=== PATIENT | female | born 1960 | race Caucasian/White ===

== ENCOUNTER 2016-03-16 07:18 | Day surgery (SDC) | payer MEDICAID ==
[2015-11-08 18:19] VITALS: BMI 26.2
[2016-03-16] MEDS ORDERED: CEFAZOLIN 1 GM VIAL ONE ×2 (07:33→08:09)
[2016-03-16] MEDS ORDERED: ALBUTEROL 6.7 GM MDI INH PRN (07:34)
[2016-03-16] MEDS ORDERED: LOMOTIL 2.5 MG PO PRN (07:34)
[2016-03-16] MEDS ORDERED: Albuterol/Ipratropium Neb 3 ML NEB NEB PRN (07:34)
[2016-03-16] MEDS ORDERED: DIPHENHYDRAMINE 25 MG CAP PO PRN (07:37)
[2016-03-16] MEDS ORDERED: MORPHINE 2 MG/ML INJECTION IV PRN (07:37)
[2016-03-16] MEDS ORDERED: PROMETHAZINE 25 MG/ML VIAL IV PRN (07:37)
[2016-03-16] MEDS ORDERED: ONDANSETRON HCL 4 MG/2 ML VIAL IV PRN ×2 (07:37→07:43)
[2016-03-16] MEDS ORDERED: DIPHENHYDRAMINE 50 MG/ML VIAL IV PRN (07:37)
[2016-03-16] MEDS ORDERED: MAGNESIUM HYDROXIDE 30 ML BOTTLE PO PRN ×2 (07:37)
[2016-03-16] MEDS ORDERED: ACETAMINOPHEN 325 MG/TAB TABLET PO PRN (07:37)
[2016-03-16] MEDS ORDERED: Aluminum;Magnesium;Simethicone 30 ML UDC PO PRN ×2 (07:37)
[2016-03-16] MEDS ORDERED: MEPERIDINE 25 MG/ML TUBEX IV PRN (07:43)
[2016-03-16] MEDS ORDERED: HYDROmorphone 1 MG INJECTION IV PRN ×2 (07:43)
[2016-03-16] MEDS ORDERED: LABETALOL 20 MG/4 ML SYRINGE IV PRN (07:43)
[2016-03-16] MEDS ORDERED: hydrALAZINE 20 MG/ML VIAL IV PRN (07:43)
[2016-03-16] MEDS ORDERED: FENTANYL 100 MCG/2 ML VIAL IV PRN (07:43)
[2016-03-16] MEDS ORDERED: ONDANSETRON HCL 4 MG ODT TAB PO PRN (07:43)
--- NOTE | 2016-03-16 07:51 | HIM.ANES ---
Anesthesia Evaluation & Plan Diagnoses: DISPLACED BIMALLEOLAR FRACTURE OF LEFT LOWER LEG, INIT (03/16/16) INFECTION FOLLOWING A PROCEDURE, INITIAL ENCOUNTER (03/16/16) - Focused Review of Systems Cardiac History: Yes: Hx Hypertension, Hx Cardiac Disorders, Hx Abnormal Cholesterol/Hyperlipidemia HEENT: Yes: Hx Vision Problem (DOES NOT WEAR GLASSES), Other HEENT Problems Hx Other HEENT Problems: ALLERGIC RHINNITIS, SINNUSITIS, VERTIGO Respiratory: Yes: Hx Asthma, Hx Emphysema, Hx Chronic Obstructive Pulmonary Disease (COPD) (CHRONIC BRONCHITIS), Hx Snoring, Hx Recent Cold/Flu (CURRENT COUGH AND CONGESTION 03/15/2016), Other Hx Respiratory (cough) Gastrointestinal: Yes: Hx Gastroesophageal Reflux Disease, Hx Gastrointestinal Disorders, Hx Colitis (CROHN'S), Hx Colonoscopy, Hx Endoscopy Neurological/Musculoskeletal: Yes: Hx Back Pain (BULGING DISK IN NECK) No: Hx Neurological Disorders Other Neurological Problems: VERTIGO Psychological: Yes Hx Depression, Yes Hx Mental/Emotional Disorders Endocrine: Yes: Hx Hypothyroidism (11/13/15 TSH 7.910 PCP AWARE) Blood/Autoimmune: Yes: Hx Anemia (AGE 16-RESOLVED) No: Hx AIDS, Hx Hepatitis (type) Smoking Status: Heavy tobacco smoker (5 or more cigarettes/day or daily pipe/ cigar) Past Social History: Denies: Substance Use Disorder Hx Chest Xray (date): Yes (11/18/2015 NO ACTIVE CARDIOPULMONARY DISEASE) Surgical History: Yes: Cholecystectomy (), Bladder Tact (BLADDER TACT 2010 ), Other (Tubal lig.) No: Hip, Knee Other Surgical History: TOTAL HYSTERECTOMY 2010 - Focused Physical Exam Mallampati: Class II Thyromental Distance: Greater than 3 Neck: Full Range of Motion Dental: Loose/Decaying Teeth Cardiovascular/Chest: Normal Respiratory: Lungs clear Any problems with anesthesia, including nausea and vomiting?: No Any relatives with a history of Malignant Hyperthermia?: No Does the patient have a history of Motion Sickness-: No Other: Problem List Problem Status Onset Acute cystitis without hematuria Acute Alcohol use Acute Diarrhea Acute Hyponatremia Acute Hypothyroid Acute Respiratory tract infection Acute UTI (urinary tract infection) Acute Wheezing Acute Tobacco abuse Chronic Allergies Allergy/AdvReac Type Severity Reaction Status Date / Time No Known Allergies Allergy Verified 03/16/16 07:38 Home Medications Medication Instructions Recorded Last Taken Type Albuterol Sulfate [Proventil Hfa] 1 - 2 puff INH Q4H PRN 12/25/12 1 Week Ago History Diphenoxylate HCl/Atropine 1 tab PO BID PRN 12/25/12 11/17/15 08:00 History [Lomotil Tablet (2.5 mg/0.025 mg)] Omeprazole 40 mg PO DAILY 12/25/12 11/18/15 07:30 History Atorvastatin Calcium [Lipitor] 10 mg PO DAILY 03/01/15 11/18/15 08:00 History Metoprolol Succinate (XL) [Toprol 12.5 mg PO DAILY PRN 03/01/15 11/17/15 08:00 History Xl] Montelukast Sodium [Singulair] 10 mg PO DAILY 03/01/15 11/18/15 07:30 History Ipratropium/Albuterol Sulfate 3 ml INH Q6H PRN 11/08/15 11/18/15 08:00 History [Duoneb 0.5 mg-3 mg/3 ml Soln] Lisinopril 20 mg PO DAILY 11/08/15 11/18/15 07:30 History Budesonide/Formoterol Fumarate 2 puff INH BID 11/17/15 11/18/15 07:15 History [Symbicort 160-4.5 Mcg Inhaler] Fluticasone Propionate [Flonase 1 - 2 spray AKI DAILY 11/17/15 11/18/15 08:00 History Nasal [place]] Loperamide HCl [Imodium] 2 mg PO DAILY PRN 11/17/15 11/18/15 08:00 History Prednisone [Deltasone] 40 mg PO .TAPERED DOSE 11/17/15 11/17/15 15:00 History Hydrocodone Bit/Acetaminophen 1 - 2 tab PO Q4-6H PRN 11/18/15 Unknown History [Hydrocodon-Acetaminophn 10-325] Calcium Carb & Cit/Vitamin D3 2 tab PO DAILY 03/15/16 Unknown History [Calcium + D3 ER Tab (600mg/500IU)] Guaifenesin-Dextromethorphan 1 each PO BID 03/15/16 Unknown History [Mucinex Dm] Height and Weight Patient's height 5 ft 2 in Patient's weight 64.864 kg BMI 26.2 - Anesthetic Plan Anesthesia Type: MAC ASA Class: 3 -: I have examined this patient and reviewed the medical record. The patient has been assessed prior to anesthesia. Risks and benefits of anesthesia and anesthetic technique options have been discussed and all questions answered. The patient accepts the risk and desires me to proceed with the planned anesthetic.
[2016-03-16] MEDS ORDERED: NALOXONE 0.4 MG/ML AMPULE IV SCH ×2 (08:00)
--- NOTE | 2016-03-16 08:59 | HIMOPRPT ---
DATE OF PROCEDURE: 03/16/16 PREOPERATIVE DIAGNOSES: Left lateral ankle wound dehiscence status post open reduction internal fixation of bimalleolar ankle fracture with retained deep implants POSTOPERATIVE DIAGNOSES: Same PROCEDURE: 1-left ankle deep implant removal 2-debridement of left lateral ankle wound dehiscence 3-placement of wound VAC FINDINGS: No evidence of osteomyelitis. No evidence of active infection or cellulitis. Fracture stability obtained although anterior fracture still visible radiographically. SPECIMENS REMOVED: None. ESTIMATED BLOOD LOSS: 10 cc ANESTHESIA: General COMPLICATIONS: None. TOURNIQUET TIME: None IMPLANTS: None SURGEON: Toribio Ahumada MD. ORIENTAL RUG STRETCHER: PA. [place] . SIGNIFICANT HISTORY, INDICATIONS, AND CONSENT: Nadya is a 55-year-old heavy smoker with a history of Crohn's disease in intermittent prednisone use who is now approximately 4 months status post open reduction internal fixation of left bimalleolar ankle fracture. Patient went on to do relatively well however developed wound dehiscence which expanded even with the assistance of regular wound care. Patient was unable to discontinue smoking and occasionally was weight-bearing with ambulation. Recently her incision site was found to have dehisced to the point were exposed implants were identified and it was decided patient would benefit from surgical intervention including implant removal with formal wound debridement and placement of wound VAC to encourage wound healing and prevent infection. Consent was obtained. OPERATION IN DETAIL: Nadya was taken to the operating room and placed in the supine position on the operating table after H&P was reviewed and left ankle was signed. Patient received prophylactic antibiotics and the left lower extremity was sterilely prepped and draped in the usual orthopedic fashion. Consensus was reached amongst participants in the OR suite. Next the wound was slightly widened proximally and distally with a sharp knife in order to visualize the entirety of the fibular plate. This was removed in normal fashion using a screwdriver under fluoroscopic guidance. The anterior to posterior lag screw was also removed. Next radiographic confirmation of implants being removed was performed and fracture stability was checked. The fracture was found to be stable with external rotation. However, fracture line was still visible anteriorly. Next using curettage we removed all nonviable tissue. A scalp was used to excise sharply nonviable skin and deep soft tissue. Curette was used to curettage our screw holes. [place] was also used to remove nonviable and fibrin as tissue. Then used 3 L of sterile saline to thoroughly irrigate the wound. Once we had a nice bleeding bed of bone and soft tissue as we placed white non adherent sponge over the bone with black sponge superficial to this approximately 1 cm larger than our wound site. The wound measured approximately 7-1/2 cm in length x 2-3/4 cm in width. After a seal was confirmed our patient was aroused by anesthesia and taken to the post anesthesia care unit in stable condition. PLAN: Patient will be observed for 23 hour stay. Touchdown weight-bearing left lower extremity. Anticipate discharge home tomorrow with outpatient wound care for every other day wound VAC changes.
[2016-03-16] MEDS ORDERED: FLUTICASONE PROPIONATE 16 GM BOT NAS SCH (09:00)
[2016-03-16] MEDS ORDERED: Non-Formulary Medication ITEM (Budesonide/Formoterol Fumarate [Symbicort 160-4.5 Mcg Inh INH SCH (09:00)
[2016-03-16] MEDS ORDERED: FENTANYL 100 MCG/2 ML VIAL ONE (09:18)
[2016-03-16] MEDS: FENTANYL 100 MCG/2 ML VIAL IV PRN ×2 (09:21→09:33)
[2016-03-16] MEDS ORDERED: MIDAZOLAM 2 MG/2 ML VIAL IV ONE (10:00)
[2016-03-16] MEDS ORDERED: HYDROmorphone 2 MG/ML VIAL IM ONE (10:00)
[2016-03-16] MEDS ORDERED: ONDANSETRON HCL 4 MG/2 ML VIAL IV ONE (10:00)
[2016-03-16] MEDS ORDERED: LIDOCAINE 100 MG PFS IV ONE (10:00)
[2016-03-16] MEDS ORDERED: PROPOFOL 200 MG/20 ML VIAL IV ONE (10:00)
[2016-03-16] MEDS ORDERED: FENTANYL 100 MCG/2 ML VIAL IV ONE (10:00)
[2016-03-16] MEDS: LR 1,000 ML IV SCH (10:19)
[2016-03-16] MEDS: FLUTICASONE PROPIONATE 16 GM BOT NAS SCH (10:20)
[2016-03-16] MEDS: ATORVASTATIN 10 MG TAB PO SCH (10:20)
[2016-03-16] MEDS: LISINOPRIL 20 MG TAB PO SCH (10:21)
[2016-03-16] MEDS: MONTELUKAST SODIUM 10 MG TAB PO SCH (10:21)
[2016-03-16] MEDS ORDERED: Vaccine Screening Complete SCH (11:00)
[2016-03-16] MEDS: BUDESONIDE 0.5 MG NEB NEB SCH ×2 (11:35→20:21)
[2016-03-16] MEDS ORDERED: CHAPSTICK LIP BALM ONE (11:42)
[2016-03-16] MEDS: METOPROLOL (TOPROL-XL) 25 MG TAB PO SCH (11:55)
[2016-03-16] MEDS: VITAMINS, MULTIPLE CAP PO SCH (11:55)
[2016-03-16] MEDS: CALCIUM CARBONATE + VITAMIN D 500 MG TAB PO SCH ×2 (11:55→18:02)
[2016-03-16] MEDS: Cefazolin 2gm/50 ml D5W 2 GM/50 ML RTU IV SCH ×2 (11:55→20:00)
[2016-03-16] MEDS: OXYCODONE HCL 5 MG TABLET PO PRN ×3 (11:57→21:24)
[2016-03-16] MEDS: ALBUTEROL 0.083% 3 ML NEB NEB SCH ×2 (13:57→20:15)
--- NOTE | 2016-03-16 13:58 | SC.ANESPOS ---
Post-Anesthesia Note LOC: Fully Awake Post-Anesthesia Assessment: Awake, Returned to Baseline, Hemodynamically Stable , Pain Control Adequate Phase I & II Recovery Complete: Yes Apparent Anesthesia Complication: No : N PACU Discharge Time: 09:55 - Vital Signs Blood Pressure: 136/76 Pulse: 80 Resp Rate: 18 O2 Sat: 97 Temp: 98 F - Comments Anesthesia Discharge Time Report Time 09:55
[2016-03-16] MEDS: PANTOPRAZOLE 40 MG TAB PO SCH (18:02)
[2016-03-16] MEDS: SODIUM CHLORIDE 0.9% 3 ML FLUSH FLUSH SCH ×2 (18:02→18:03)
[2016-03-16] MEDS: HYDROmorphone 1 MG INJECTION IV PRN (18:03)
[2016-03-16] MEDS ORDERED: Docusate Sodium 100 MG CAP PO SCH (21:00)
[2016-03-16] MEDS ORDERED: DOCUSATE-SENNA CONCENTRATE TAB PO SCH (21:00)
[2016-03-17] MEDS: ALBUTEROL 0.083% 3 ML NEB NEB SCH ×2 (01:09→07:19)
[2016-03-17] MEDS: OXYCODONE HCL 5 MG TABLET PO PRN ×2 (01:52→10:43)
[2016-03-17] MEDS: LR 1,000 ML IV SCH ×2 (03:24→07:51)
[2016-03-17] MEDS: Cefazolin 2gm/50 ml D5W 2 GM/50 ML RTU IV SCH (04:22)
[2016-03-17] MEDS: SODIUM CHLORIDE 0.9% 3 ML FLUSH FLUSH SCH ×2 (05:23)
[2016-03-17] MEDS: HYDROmorphone 1 MG INJECTION IV PRN (05:23)
[2016-03-17] MEDS: PANTOPRAZOLE 40 MG TAB PO SCH (05:23)
--- NOTE | 2016-03-17 06:57 | PCM.ORTHBL ---
- Subjective Hospital Day #: 2 Post Op Day: 1 Daily Assessment - Patient: Reports: No new complaints, Feels better, Tolerating Regular Diet, Afebrile, Ambulating with Physical Therapist - Objective / Physical Exam Vital Signs: Temperature: 97.8 F (03/17/16 06:00) HR: 83 (03/17/16 06:00)RR: 18 (03/17/16 06: 00) BP: 138/63 (03/17/16 06:00)Pulse Ox: 94 (03/17/16 06:00) General: Alert, Oriented x3, Cooperative, No acute distress Musculoskeletal / Extremities: 2 plus Dorsalis Pedis Pulse, Dressing Clean/Dry/ Intact, Other (vac intact) Neurological: Positive Sensation First Dorsal Web Space, Sensation to light touch intact, Extensor Hallicus Longus Intact, Flexor Hallicus Longus Intact, Dorsiflexion Intact, Plantarflexion Intact Skin: Warm,Dry and Intact - Assessment and Plan (1) Wound dehiscence Acute T81.30XA - DISRUPTION OF WOUND, UNSPECIFIED, INITIAL ENCOUNTER Present on Admission: Yes Comment/Plan: POD #1 s/p Left lateral ankle wound dehiscence I and D with removal of hardware and placement of wound VAC. Plan for discharge today if patient is set up to have outpatient wound care/vac at home. Continue nonweightbearing on the left lower extremity. Encouraged continued smoking cessation. Follow-up postop day 10-[address]umada.
--- NOTE | 2016-03-17 07:02 | PCM.DCS92 ---
- Final/Secondary Discharge Diagnosis (1) Wound dehiscence Acute T81.30XA - DISRUPTION OF WOUND, UNSPECIFIED, INITIAL ENCOUNTER Present on Admission: Yes Discharge Disposition: Discharge w/ Home Health Discharge Condition: Stable Cognitive Discharge Status: Unimpaired Fuctional Discharge Status: Walker Assistance Physician Follow up/Referrals: Javid De Anda PA [Staff Physician Commercial Pest Control Technician] - Two Weeks Discharge Home Medication List Albuterol Sulfate [Proventil Hfa] 1 - 2 puff INH Q4H PRN 12/25/12 [History Confirmed 03/15/16 Last Taken 03/16/16 05:00] Diphenoxylate HCl/Atropine [Lomotil Tablet (2.5 mg/0.025 mg)] 1 tab PO BID PRN 12/25/12 [History Confirmed 03/15/16 Last Taken 11/17/15 08:00] Omeprazole 40 mg PO DAILY 12/25/12 [History Confirmed 03/15/16 Last Taken 05:00] Atorvastatin Calcium [Lipitor] 10 mg PO DAILY 03/01/15 [History Confirmed Last Taken 03/16/16 05:00] Metoprolol Succinate (XL) [Toprol Xl] 12.5 mg PO DAILY PRN 03/01/15 [History Confirmed 03/16/16 Last Taken 03/15/16] Montelukast Sodium [Singulair] 10 mg PO DAILY 03/01/15 [History Confirmed Last Taken 03/16/16 05:00] Ipratropium/Albuterol Sulfate [Duoneb 0.5 mg-3 mg/3 ml Soln] 3 ml INH Q6H PRN [History Confirmed 03/16/16 Last Taken 03/16/16 06:00] Lisinopril 20 mg PO DAILY 11/08/15 [History Confirmed 03/15/16 Last Taken 05:00] Budesonide/Formoterol Fumarate [Symbicort 160-4.5 Mcg Inhaler] 2 puff INH BID [History Confirmed 03/15/16 Last Taken 03/16/16 05:00] Fluticasone Propionate [Flonase] 1 - 2 spray AKI DAILY 11/17/15 [History Confirmed 03/15/16 Last Taken 03/16/16 05:00] Loperamide HCl [Imodium] 2 mg PO DAILY PRN 11/17/15 [History Confirmed 03/15/16 Last Taken 11/18/15 08:00] Calcium Carb & Cit/Vitamin D3 [Calcium + D3 ER Tab (600mg/500IU)] 2 tab PO DAILY 03/15/16 [History Confirmed 03/15/16 Last Taken Unknown] Guaifenesin-Dextromethorphan [Mucinex Dm] 1 each PO BID 03/15/16 [History Confirmed 03/15/16 Last Taken 03/16/16 05:00] Hydrocodone Bit/Acetaminophen [Loraine 5-325 Tablet] 1 tab PO TID 03/16/16 [ History Confirmed 03/16/16 Last Taken Unknown] Diet at Discharge: As Tolerated Activity: Limited, No Driving Call Office For: Worsening Symptoms, Wound is Draining Pus, Fever over 101 F, Pain Uncontrolled By Meds Discontinue use of:: Alcohol, All Illegal Substances, All Types of Tobacco - DC Summary Notes Hospital Course Note:: Discharge summary on patient named DIANA MORGAN admitted to [facility] on 03/16/16 by Toribio Ahumada MD. Date of discharge is [ HPI: 55-year-old female with history of left ankle open reduction internal fixation over 3 months ago having had complications postoperatively with wound dehiscence laterally. Patient had failed to improve with outpatient wound care and presents the office with exposed hardware. Patient was taken to the operating room yesterday for I and D and removal of deep implants. Wound VAC was placed at time of surgery. Hospital course: Postoperatively diet was advanced with pain well controlled. Case management setting up discharge disposition for that at home as well as outpatient wound care. Discharge instructions: Patient will remain nonweightbearing on the left lower extremity with wound VAC and wound care at home/wound clinic. Prescriptions provided in the clinic for pain medication. Follow up with Dr. Ahumada in 10-14 days.]. Medication Instructions: Rx Given at Clinic Activity as Tolerated: No Weight Bearing: None Current Dressing: Other (wound vac) Dressing Care: Keep Wound Clean & Dry, No Tub Baths - Consults/Home Health Outpatient Consults: Home Health - Physical Exam Vital Signs: Initial Vitals Temperature 98.4 F 03/16/16 07:47 Pulse Rate 76 03/16/16 07:47 Respiratory Rate 18 03/16/16 07:47 Blood Pressure 160/81 03/16/16 07:47 Pulse Oxygen Saturation 96 03/16/16 07:47
[2016-03-17 07:11] LABS: AUTOMATED BASOPHIL 0.6 % (0-2); AUTOMATED EOSINOPHIL 0.7 % (0-5); AUTOMATED LYMPH 30.9 % (17-44); AUTOMATED MONOCYTE 8.3 % (3-10); AUTOMATED NEUTROPHIL 59.5 % (45-76); MPV 7.1 fL (7.4-10.4)
[2016-03-17] MEDS: BUDESONIDE 0.5 MG NEB NEB SCH (07:22)
[2016-03-17 07:26] LABS: BLOOD UREA NITROGEN 10 MG/DL (7-17); CALCULATED OSMOLALITY 252 MOs/Kg (270-290); CHLORIDE 96 mEq/L (98-107); GLUCOSE 99 MG/DL (70-99); SODIUM LEVEL 131 mEq/L (137-146)
[2016-03-17 07:49] VITALS: BP 140/79; PULSE 85; TEMP 98.8
[2016-03-17] MEDS: FLUTICASONE PROPIONATE 16 GM BOT NAS SCH (07:50)
[2016-03-17] MEDS: LISINOPRIL 20 MG TAB PO SCH (07:51)
[2016-03-17] MEDS: ATORVASTATIN 10 MG TAB PO SCH (07:51)
[2016-03-17] MEDS: MONTELUKAST SODIUM 10 MG TAB PO SCH (07:52)
[2016-03-17] MEDS: METOPROLOL (TOPROL-XL) 25 MG TAB PO SCH (07:52)
[2016-03-17] MEDS: VITAMINS, MULTIPLE CAP PO SCH (07:53)
[2016-03-17] MEDS: CALCIUM CARBONATE + VITAMIN D 500 MG TAB PO SCH (07:53)
== END 2016-03-17 13:30 | disposition home health service (06) ==
LOC: SDC 07:18 → MPS3 09:45
PROVIDERS: ADMIT Orthopaedic Surgery; ATTEND Orthopaedic Surgery
PROC: 0QPK04Z Removal of Internal Fixation Device from Left Fibula, Open Approach (ICD-10-PCS; 2016-03-16)
PROC: 0SPG04Z Removal of Internal Fixation Device from Left Ankle Joint, Open Approach (ICD-10-PCS; principal; 2016-03-16 08:45)
DX: T81.31XA Disruption of external operation (surgical) wound, not elsewhere classified, initial encounter (principal); Z46.4 Encounter for fitting and adjustment of orthodontic device; Y83.1 Surgical operation with implant of artificial internal device as the cause of abnormal reaction of the patient, or of later complication, without mention of misadventure at the time of the procedure; K50.90 Crohn's disease, unspecified, without complications; Z79.52 Long term (current) use of systemic steroids; F17.200 Nicotine dependence, unspecified, uncomplicated; Z71.6 Tobacco abuse counseling; S82.842D Displaced bimalleolar fracture of left lower leg, subsequent encounter for closed fracture with routine healing; X58.XXXD Exposure to other specified factors, subsequent encounter
CPT/HCPCS: 20680; 80048; 85025; 94640; 97116; 97161; 97602; 99406; G0378; J0690; J1170; J2001; J2250; J2405; J3010; J3490